=== PATIENT | male | born 1995 | race Two or more races ===

== ENCOUNTER 2025-03-05 11:58 | Emergency (ER) | payer BC ==
[~2025-03-05] VITALS: Ht 172.7 cm; Wt 94.3 kg
[2025-03-05] MEDS ORDERED: BENZ-13 PO (12:25)
[2025-03-05] MEDS ORDERED: IBUP-1955 PO (12:25)
[2025-03-05 12:31] VITALS: BP 132/89; TEMP 98.4; O2SAT 98
== END 2025-03-05 12:31 | disposition home or self-care (01) ==
LOC: ER 12:06
DX: J06.9 Acute upper respiratory infection, unspecified (principal); R05.9 Cough, unspecified; R09.81 Nasal congestion; I10 Essential (primary) hypertension; F17.200 Nicotine dependence, unspecified, uncomplicated